=== PATIENT | male | born 1975 | race Caucasian/White ===

== ENCOUNTER 2016-09-18 13:31 | Emergency (ER) | payer SELFPAY ==
[2016-09-22 11:22] LABS: BLOOD UREA NITROGEN 8 mg/dL (7-18)
== END 2016-09-18 17:40 | disposition home or self-care (01) ==
LOC: ED 13:31
DX: J02.0 Streptococcal pharyngitis (principal)
CPT/HCPCS: 36415; 80048; 82040; 85025; 99284

== ENCOUNTER 2016-09-20 03:21 | Day surgery (SDC) | payer OTHER ==
[~2016-09-20] VITALS: Ht 185.4 cm; Wt 77.9 kg
[~2016-09-20 03:21] MED LIST: CEFTRIAXONE PMX 1GM/50ML 50 ML ONE; KETOROLAC 30 MG/1 ML ONE; MORPHINE SULFATE 4 MG/ML, 1ML ONE; ONDANSETRON 2MG/ML, 2ML ONE
[2016-09-20] MEDS ORDERED: ONDANSETRON 2MG/ML, 2ML IVPush ONE (05:00)
[2016-09-20] MEDS ORDERED: SODIUM CHLORIDE FLUSH 10ML SYR IVF ONE (05:00)
[2016-09-20] MEDS ORDERED: SODIUM CHLORIDE 0.9% 1,000ML IVBOLUS ONE ×2 (05:00)
[2016-09-20] MEDS ORDERED: MORPHINE SULFATE 4 MG/ML, 1ML IVPush PRN (05:00)
[2016-09-20] MEDS ORDERED: ONDANSETRON 2MG/ML, 2ML ONE ×2 (05:16→11:11)
[2016-09-20] MEDS ORDERED: MORPHINE SULFATE 4 MG/ML, 1ML ONE (05:16)
[2016-09-20 05:41] LABS: BLOOD UREA NITROGEN 9 mg/dL (7-18)
[2016-09-20 05:44] LABS: ASPARTATE AMINO TRANSFERASE 14 U/L (15-37)
[2016-09-20] MEDS ORDERED: CLINDAMYCIN PMX 600MG/50ML 50 ML IV ONE (06:00)
[2016-09-20] MEDS ORDERED: DEXAMETHASONE 4 MG/ML, 1ML IVPush ONE (06:00)
[2016-09-20] MEDS ORDERED: OMNIPAQUE 350 MG/ML, 100ML BOTTLE ONE (06:05)
[2016-09-20] MEDS ORDERED: CLINDAMYCIN PMX 600MG/50ML 50 ML ONE (06:15)
[2016-09-20] MEDS ORDERED: DEXAMETHASONE 4 MG/ML, 1ML ONE ×3 (06:15→11:11)
[2016-09-20] MEDS ORDERED: LIDOCAINE 1%, 20ML ONE (06:44)
[2016-09-20] MEDS ORDERED: FENTANYL PF 100 MCG/2ML ONE (06:44)
[2016-09-20] MEDS ORDERED: LIDOCAINE 1%, 20ML INFIL ONE (07:00)
[2016-09-20] MEDS ORDERED: FENTANYL PF 100 MCG/2ML IVPush ONE (07:00)
[2016-09-20] MEDS ORDERED: DEXAMETHASONE 4 MG/ML, 1ML IVPush SCH ×2 (08:30→16:30)
[2016-09-20] MEDS ORDERED: AMPICILLIN/SULBACTAM 3 GM in SODIUM CHLORIDE 0.9% 100 ML IV ONE (08:30)
[2016-09-20 09:48] VITALS: BP 124/81
[2016-09-20 10:33] VITALS: BP 121/80
[2016-09-20] MEDS ORDERED: OXYMETAZOLINE NASAL SPRAY 0.05%, 15ML ONE (10:41)
[2016-09-20] MEDS ORDERED: FENTANYL PF 250 MCG/5ML ONE (10:50)
[2016-09-20] MEDS ORDERED: MIDAZOLAM 1 MG/ML, 2ML ONE (10:50)
[2016-09-20] MEDS ORDERED: LACTATED RINGERS 1,000 ML IV SCH (11:00)
[2016-09-20] MEDS ORDERED: OXYcodone/APAP 10/325MG TABLET PO PRN (11:00)
[2016-09-20] MEDS ORDERED: PROPOFOL 10 MG/ML, 20ML ONE (11:11)
[2016-09-20] MEDS ORDERED: SUCCINYLCHOLINE 20 MG/ML, 10ML ONE (11:11)
[2016-09-20] MEDS ORDERED: GLYCOPYRROLATE 0.2MG/1ML ONE (11:11)
[2016-09-20] MEDS ORDERED: ROCURONIUM 10 MG/ML ONE (11:11)
[2016-09-20] MEDS ORDERED: NEOSTIGMINE 1 MG/ML, 10ML ONE (11:11)
[2016-09-20] MEDS ORDERED: KETOROLAC 30 MG/1 ML ONE (11:11)
[2016-09-20] MEDS ORDERED: MIDAZOLAM 1 MG/ML, 2ML IV PRN (12:00)
[2016-09-20] MEDS ORDERED: PROMETHAZINE 25 MG/ML, 1ML IV PRN (12:00)
[2016-09-20] MEDS ORDERED: OXYcodone 5 MG/5 ML ORAL.SOL UDC PO PRN (12:00)
[2016-09-20] MEDS ORDERED: HYDROmorphone 1 MG/ML, 1ML IV PRN (12:00)
[2016-09-20] MEDS ORDERED: FENTANYL PF 100 MCG/2ML IV PRN (12:00)
[2016-09-20] MEDS ORDERED: EPHEDRINE 50 MG/ML, 1ML IVPush PRN (12:00)
[2016-09-20] MEDS ORDERED: MEPERIDINE/PF 25MG/0.5ML IVPush PRN (12:00)
[2016-09-20] MEDS ORDERED: LABETALOL 5MG/ML, 20ML IV PRN (12:00)
[2016-09-20] MEDS ORDERED: ACETAMINOPHEN 325 MG TABLET PO PRN (12:00)
[2016-09-20] MEDS ORDERED: ALBUTEROL SULFATE 2.5 MG/3 ML NPPB PRN (12:00)
[2016-09-20] MEDS ORDERED: ONDANSETRON 2MG/ML, 2ML IVPush PRN (12:00)
[2016-09-20] MEDS ORDERED: hydrALAzine 20 MG/ML, 1ML IV PRN (12:00)
[2016-09-20] MEDS ORDERED: METOPROLOL 1 MG/ML, 5ML IV PRN (12:00)
[2016-09-20] MEDS ORDERED: ACETAMINOPHEN 650 MG/20.3 ML UDC ONE (12:19)
[2016-09-20] MEDS ORDERED: OXYcodone 5 MG/5 ML ORAL.SOL UDC ONE (12:19)
[2016-09-20 14:00] VITALS: BP 121/80
[2016-09-20] MEDS ORDERED: AMPICILLIN/SULBACTAM 3 GM in SODIUM CHLORIDE 0.9% 100 ML IV SCH (14:30)
[2016-09-20] MEDS ORDERED: CEPH-368 PO (16:56)
[2016-09-20] MEDS ORDERED: SODIUM CHLORIDE FLUSH 10ML SYR IVF SCH (21:00)
== END 2016-09-20 17:41 | disposition home or self-care (01) ==
LOC: ED 05:21 → EDIP 08:21 → OR 08:21 → UNDOADMIN 08:21 → EDIP 09:15 → 4NOR 09:15 → OR 17:41 → UNDODISIN 17:41
PROVIDERS: ATTEND Otolaryngology
DX: J36 Peritonsillar abscess (principal); Z98.890 Other specified postprocedural states; Z72.89 Other problems related to lifestyle; F12.90 Cannabis use, unspecified, uncomplicated; F17.290 Nicotine dependence, other tobacco product, uncomplicated; Z79.01 Long term (current) use of anticoagulants; Z79.2 Long term (current) use of antibiotics
CPT/HCPCS: 36415; 41800; 42700; 70491; 80053; 83605; 84145; 85025; 85610; 85730; 86308; 87040; 87081; 87147; 87880; 96361; 96365; 96375; 99285; J0295; J0330; J1100; J1885; J2250; J2405; J2704; J2710; J3010; J3490; J7030; Q9967